=== PATIENT | female | born 1930 | race Two or more races ===

== ENCOUNTER 2017-09-30 10:29 | Outpatient (CLI) | payer OTHER ==
[~2017-09-30 10:29] MED LIST: CEFUROXIME500 MG PO; DYMISTA NASAL S23 GM NS; FLONASE16 GM NS; ZYRTEC10 MG PO
== END 2017-09-30 17:06 | disposition home or self-care (01) ==
LOC: MAMO-SONO 10:29
DX: Z12.31 Encounter for screening mammogram for malignant neoplasm of breast (principal); Z87.898 Personal history of other specified conditions; N63.11 Unspecified lump in the right breast, upper outer quadrant; N63.10 Unspecified lump in the right breast, unspecified quadrant

== ENCOUNTER 2017-11-10 09:28 | Outpatient (CLI) | payer OTHER | END 2017-11-10 09:59 | disposition home or self-care (01) | LOC: LAB 09:28 | DX: E55.9 Vitamin D deficiency, unspecified (principal); E83.42 Hypomagnesemia; E21.3 Hyperparathyroidism, unspecified; M85.89 Other specified disorders of bone density and structure, multiple sites; M81.8 Other osteoporosis without current pathological fracture ==

== ENCOUNTER 2017-11-25 13:40 | Outpatient (CLI) | payer OTHER | END 2017-11-25 13:53 | disposition home or self-care (01) | LOC: NUCLEAR 13:40 | DX: M85.80 Other specified disorders of bone density and structure, unspecified site (principal); M81.0 Age-related osteoporosis without current pathological fracture ==

== ENCOUNTER 2018-11-05 13:47 | Outpatient (CLI) | payer OTHER | END 2018-11-05 13:58 | disposition home or self-care (01) | LOC: RAD 501 13:47 | DX: M25.562 Pain in left knee (principal); M54.5 Low back pain; S80.02XD Contusion of left knee, subsequent encounter ==

== ENCOUNTER 2019-04-21 12:52 | Outpatient (CLI) | payer OTHER | END 2019-04-21 16:27 | disposition home or self-care (01) | LOC: MAMO-SONO 12:52 | DX: Z12.31 Encounter for screening mammogram for malignant neoplasm of breast (principal); Z87.898 Personal history of other specified conditions; N63.10 Unspecified lump in the right breast, unspecified quadrant; N63.20 Unspecified lump in the left breast, unspecified quadrant ==

== ENCOUNTER 2019-06-04 09:13 | Outpatient (CLI) | payer OTHER | END 2019-06-04 15:00 | disposition home or self-care (01) | LOC: LAB 09:13 | DX: E21.3 Hyperparathyroidism, unspecified (principal); M85.9 Disorder of bone density and structure, unspecified ==

== ENCOUNTER 2019-06-11 10:47 | Outpatient (CLI) | payer OTHER | END 2019-06-11 10:51 | disposition home or self-care (01) | LOC: NUCLEAR 10:47 | DX: M81.0 Age-related osteoporosis without current pathological fracture (principal) ==

== ENCOUNTER 2020-02-15 07:46 | Outpatient (CLI) | payer OTHER | END 2020-02-15 07:59 | disposition home or self-care (01) | LOC: NUCLEAR 07:46 | PROVIDERS: ATTEND Internal Medicine Cardiovascular Disease | DX: I11.9 Hypertensive heart disease without heart failure (principal); I25.10 Atherosclerotic heart disease of native coronary artery without angina pectoris | CPT/HCPCS: 78452; 93017; A9500; J0153 ==

== ENCOUNTER 2020-06-16 09:51 | Outpatient (CLI) | payer OTHER | END 2020-06-16 09:57 | disposition home or self-care (01) | LOC: RAD 09:51 → MAMO-SONO 10:00 | PROVIDERS: ATTEND Internal Medicine Cardiovascular Disease | DX: R10.84 Generalized abdominal pain (principal) ==

== ENCOUNTER 2020-07-06 12:25 | Outpatient (CLI) | payer OTHER | END 2020-07-06 12:34 | disposition home or self-care (01) | LOC: MAMO-SONO 12:25 | PROVIDERS: ATTEND Internal Medicine Cardiovascular Disease | DX: Z12.31 Encounter for screening mammogram for malignant neoplasm of breast (principal) ==

== ENCOUNTER 2020-09-20 11:40 | Outpatient (CLI) | payer OTHER | END 2020-09-20 11:45 | disposition home or self-care (01) | LOC: PPH VACUNA 11:40 | PROVIDERS: ATTEND Emergency Medicine Pediatric Emergency Medicine | DX: Z23 Encounter for immunization (principal) ==

== ENCOUNTER 2021-06-06 08:30 | Outpatient (CLI) | payer OTHER | END 2021-06-06 09:00 | disposition home or self-care (01) | LOC: PPH VACUNA 08:30 | PROVIDERS: ATTEND Emergency Medicine Pediatric Emergency Medicine | DX: Z23 Encounter for immunization (principal) ==

== ENCOUNTER 2021-06-13 12:50 | Outpatient (CLI) | payer OTHER | END 2021-06-13 12:54 | disposition home or self-care (01) | LOC: NUCLEAR 12:50 | PROVIDERS: ATTEND Orthopaedic Surgery | DX: M81.0 Age-related osteoporosis without current pathological fracture (principal); M85.9 Disorder of bone density and structure, unspecified ==

== ENCOUNTER 2021-08-16 14:41 | Outpatient (CLI) | payer OTHER | END 2021-08-16 14:57 | disposition home or self-care (01) | LOC: RAD 14:41 | PROVIDERS: ATTEND Orthopaedic Surgery | DX: M79.671 Pain in right foot (principal) ==

== ENCOUNTER 2021-08-28 11:36 | Outpatient (CLI) | payer OTHER | END 2021-08-28 11:52 | disposition home or self-care (01) | LOC: RAD 11:36 | PROVIDERS: ATTEND Orthopaedic Surgery | DX: M79.641 Pain in right hand (principal); M65.341 Trigger finger, right ring finger ==

== ENCOUNTER 2021-12-25 08:00 | Outpatient (CLI) | payer OTHER | END 2021-12-25 08:30 | disposition home or self-care (01) | LOC: PPH VACUNA 08:00 | PROVIDERS: ATTEND Emergency Medicine Pediatric Emergency Medicine | DX: Z23 Encounter for immunization (principal) ==

== ENCOUNTER 2022-05-20 12:41 | Outpatient (CLI) | payer OTHER | END 2022-05-20 12:51 | disposition home or self-care (01) | LOC: PPH VACUNA 12:41 | PROVIDERS: ATTEND Emergency Medicine Pediatric Emergency Medicine | DX: Z23 Encounter for immunization (principal) ==